=== PATIENT | female | born 1990 | race Two or more races ===

== ENCOUNTER 2020-01-21 13:15 | Inpatient (IN) | payer OTHER ==
[~2020-01-21] VITALS: Ht 154.9 cm; Wt 76.7 kg
[2020-02-04] MEDS ORDERED: PRENATAL + DHA1 EAC1 PO (11:03)
== END 2020-02-05 17:02 | disposition home or self-care (01) | DRG 807 ==
LOC: EDSTATUS 13:15 → OB/GYN 02-02 13:20 → LDR 02-02 13:20 → OB/GYN 02-03 05:48
PROVIDERS: ADMIT Obstetrics & Gynecology; ATTEND Obstetrics & Gynecology
PROC: 4A1HXCZ Monitoring of Products of Conception, Cardiac Rate, External Approach (ICD-10-PCS; 2020-02-02)
PROC: 10E0XZZ Delivery of Products of Conception, External Approach (ICD-10-PCS; principal; 2020-02-03)
DX: O80 Encounter for full-term uncomplicated delivery (principal); Z37.0 Single live birth; Z3A.39 39 weeks gestation of pregnancy; Z20.828 Contact with and (suspected) exposure to other viral communicable diseases